=== PATIENT | male | born 1935 | race Caucasian/White ===

== ENCOUNTER 2018-09-05 12:03 | Inpatient (IN) | payer MEDICARE | END 2018-09-06 17:23 | disposition home or self-care (01) | LOC: EDH 12:03 → EDHIP 16:23 → 4AH 17:01 | DX: S42.302A Unspecified fracture of shaft of humerus, left arm, initial encounter for closed fracture (principal); W19.XXXA Unspecified fall, initial encounter; S00.83XA Contusion of other part of head, initial encounter; Z79.01 Long term (current) use of anticoagulants; J84.10 Pulmonary fibrosis, unspecified ==